=== PATIENT | male | born 1955 | race Caucasian/White ===

== ENCOUNTER 2017-07-24 10:05 | Emergency (ER) | payer OTHER ==
[~2017-07-24] VITALS: Ht 170.2 cm; Wt 90.7 kg
[2017-07-24 10:14] VITALS: BP 130/81
--- NOTE | 2017-07-24 10:34 | ED INFLUENZA/URI COMPLAINT ---
History of Present Illness General Chief Complaint: Upper Respiratory Sx/Fever Stated Complaint: URI Source: patient Exam Limitations: no limitations Vital Signs & Intake/Output Vital Signs & Intake/Output Vital Signs Date Time Temp Pulse Resp B/P B/P Pulse O2 O2 Flow FiO2 Mean Ox Delivery Rate 07/24 1014 99.8 88 15 130/81 96 Room Air Room Air Allergies Coded Allergies: No Known Allergies (07/24/17) Triage Note: PT TO ED FOR C/C OF URI SYMPTOMS, DECREASED APPETITE, NAUSEA, DIARRHEA, +COUGH, FEVERS, CHILLS. Triage Nurses Notes Reviewed? yes Onset: Gradual Duration: constant Timing: recent history Severity: moderate Severity Numbers: 5 HPI: Patient is a 62-year-old male with a past medical history of hypertension and hyperlipidemia who presented emergent with a 5-6 day history of persistent nonproductive cough generalized weakness and fatigue intermittent fevers and chills Patient and family members state that he has not been eating well since. Mild nausea and dry heaves after multiple episodes of coughing. No similar sick contacts patient does not smoke Denies any arm pain jaw pain sore throat and nasal congestion ear pain hemoptysis leg swelling (Geo Ramirez) Reconcile Medications Albuterol Sulfate (Ventolin Hfa) 90 MCG HFA.AER.AD 2 PUF INH Q4-6 PRN PRN SHORTNESS OF BREATH Azithromycin (Zithromax) 500 MG TABLET 1 TAB PO DAILY BRONCHITIS Benzonatate (Tessalon Perle) 100 MG CAPSULE 1 CAP PO TID PRN COUGH Codeine Phosphate/Guaifenesi (Cheratussin AC Syrup) 10 MG-100 MG/5 ML LIQUID 10 ML PO QPM PRN COUGH (Marko Gonzalez DO) Past History Travel History Traveled to [place] past 21 day No Medical History Any Pertinent Medical History? see below for history Cardiovascular: hypertension, hyperlipidemia Surgical History Surgical History: non-contributory Psychosocial History What is your primary language [place] Tobacco Use: Quit >30 days ago ETOH Use: denies use Illicit Drug Use: denies illicit drug use Family History Hx Contributory? No (Geo Ramirez) Review of Systems Review of Systems Constitutional: Reports: see HPI, chills, fever, malaise, weakness. EENTM: Reports: see HPI. Respiratory: Reports: see HPI, cough. Cardiovascular: Reports: no symptoms. GI: Reports: no symptoms. Genitourinary: Reports: no symptoms. Musculoskeletal: Reports: no symptoms. Skin: Reports: no symptoms. Neurological/Psychological: Reports: no symptoms. Hematologic/Endocrine: Reports: no symptoms. Immunologic/Allergic: Reports: no symptoms. All Other Systems: Reviewed and Negative (Geo Ramirez) Physical Exam Physical Exam General Appearance: no apparent distress, alert, comfortable Head: atraumatic Eyes: Bilateral: normal appearance. Ears, Nose, Throat: normal ENT inspection, moist mucous membrane, hearing grossly normal Neck: normal inspection, supple, full range of motion Respiratory: normal breath sounds, chest non-tender, no respiratory distress Cardiovascular: regular rate/rhythm Peripheral Pulses: 2+ radial (R) Gastrointestinal: normal bowel sounds, soft, non-tender Extremities: normal inspection, normal capillary refill, no edema Neurologic/Psych: no motor/sensory deficits, awake, alert, oriented x 3 Skin: intact, normal color, warm/dry Lymphatic: no anterior cervical zach Core Measures Sepsis Present: No Sepsis Focused Exam Completed? No (Geo Ramirez) Progress Differential Diagnosis: influenza, meningitis, neutropenia, otitis, pneumonia, pharyngitis, sinusitis Plan of Care: Orders Procedure Date/time Status RAPID VIRAL INFLUENZA A 07/24 1015 Complete Microbiology 07/24 1018 NASOPHARYN: Influenza Virus A & B Rapid Smear - COMP Patient on initial examination looks well no apparent distress nontoxic- appearing afebrile clear lungs auscultation unremarkable ENT exam. Initial ED EKG: none (Geo Ramirez) Departure Departure Disposition: HOME OR SELF CARE Condition: Stable Clinical Impression Primary Impression: Bronchitis Referrals: Bucky Correa MD (PCP/Family) Additional Instructions: As discussed begin the prescription of azithromycin for the full course, Tessalon Perles and Cheratussin for cough, and Ventolin for shortness of breath, prescriptions are waiting at [facility], begin [id number] Tylenol for fevers. If no better in 3 days follow-up with primary care doctor if symptoms worsen return to emergency room. drink Plenty of water for hydration and a healthy well-balanced diet to improve your symptoms Departure Forms: Customer Survey General Discharge Information Prescriptions: Current Visit Scripts Azithromycin (Zithromax) 1 TAB PO DAILY #5 TAB Benzonatate (Tessalon Perle) 1 CAP PO TID PRN COUGH #15 CAP Codeine Phosphate/Guaifenesi (Cheratussin AC Syrup) 10 ML PO QPM PRN COUGH #100 ML Albuterol Sulfate (Ventolin Hfa) 2 PUF INH Q4-6 PRN PRN SHORTNESS OF BREATH #1 INHAL (Geo Ramirez) PA/CRANE MANAGER Co-Sign Statement Statement: ED Attending supervision documentation- [] I saw and evaluated the patient. I have also reviewed all the pertinent lab results and diagnostic results. I agree with the findings and the plan of care as documented in the PA's/CRANE MANAGER's documentation. [X] I have reviewed the ED Record and agree with the PA's/CRANE MANAGER's documentation. [] Additions or exceptions (if any) to the PAs/CRANE MANAGER's note and plan are summarized below: [] (Marko Gonzalez DO)
[2017-07-24] MEDS ORDERED: VENTOLIN HFA18 GM INH (10:54)
[2017-07-24] MEDS ORDERED: CHERATUSSIN AC118 M1 PO (10:54)
[2017-07-24] MEDS ORDERED: TESSALON PERLE100 M1 PO (10:54)
[2017-07-24] MEDS ORDERED: ZITHROMAX500 M2 PO (10:54)
== END 2017-07-24 11:11 ==
LOC: ERH 10:05
DX: J40 Bronchitis, not specified as acute or chronic (principal); Z79.01 Long term (current) use of anticoagulants
CPT/HCPCS: 87804; 87804-59